=== PATIENT | female | born 1985 | race Caucasian/White ===

== ENCOUNTER → 2017-11-12 19:15 | Outpatient (CLI) | payer OTHER, SELFPAY ==
[2017-11-18 10:08] LABS: HPV APTIMA, High Risk Negative (Negative)
== END ==
PROVIDERS: Visit Provider Nurse Practitioner Women's Health
DX: Z12.4 Encounter for screening for malignant neoplasm of cervix (principal)
CPT/HCPCS: 88175; G0145

== ENCOUNTER → 2017-11-24 08:32 | Outpatient (CLI) | payer OTHER, SELFPAY ==
--- NOTE | 2017-11-24 08:33 | US_ITS ---
STUDY: ULTRASOUND OF THE FEMALE PELVIS - COMPLETE REASON FOR EXAM: Female, 32 years old. IUD placement. LMP: 2016. TECHNIQUE: Transabdominal and Transvaginal TECHNICAL QUALITY: Adequate. COMPARISON: None. FINDINGS: The uterus is anteverted and is in a midline position. The uterus measures 8.0 cm x 4.5 cm x 3.5 cm. Normal uterine cervix. The endometrium measures 2.0 mm in thickness, and is hyperechoic. Trace amount of fluid is seen within the endometrial surrounding the IUD. There is no demonstrated endometrial mass. There is no demonstrated myometrial mass. I.U.D. - The patient does have an I.U.D. The right ovary is visualized. The right ovary measures 2.5 cm x 2.7 cm x 1.8 cm. A dominant follicle is seen. This measures 1.8 cm x 1.6 x 1.1 There is no visualized right adnexal mass or complex lesion. There is normal arterial and normal venous vascularity. The left ovary is visualized. The left ovary measures 3.4 cm x 2.1 cm x 1.8 cm. There is a dominant follicle measuring 1.8 cm x 1.3 cm x 1.1 cm. There is no visualized left adnexal mass or complex lesion. There is normal arterial and normal venous vascularity. There is minimal fluid in the cul-de-sac. The pre void volume of the bladder was 723 ml. Polycystic ovary disease: No. US/Transvaginal Non- IMPRESSION: IUD is seen within the endometrium. Dominant follicle seen in both ovaries. Electronically Signed: Harpreet Ceja MD at 14:25 EDT Tel [phone], Service support ,
--- NOTE | 2017-11-24 08:33 | US_ITS ---
STUDY: ULTRASOUND OF THE FEMALE PELVIS - COMPLETE REASON FOR EXAM: Female, 32 years old. IUD placement. LMP: 2016. TECHNIQUE: Transabdominal and Transvaginal TECHNICAL QUALITY: Adequate. COMPARISON: None. FINDINGS: The uterus is anteverted and is in a midline position. The uterus measures 8.0 cm x 4.5 cm x 3.5 cm. Normal uterine cervix. The endometrium measures 2.0 mm in thickness, and is hyperechoic. Trace amount of fluid is seen within the endometrial surrounding the IUD. There is no demonstrated endometrial mass. There is no demonstrated myometrial mass. I.U.D. - The patient does have an I.U.D. The right ovary is visualized. The right ovary measures 2.5 cm x 2.7 cm x 1.8 cm. A dominant follicle is seen. This measures 1.8 cm x 1.6 x 1.1 There is no visualized right adnexal mass or complex lesion. There is normal arterial and normal venous vascularity. The left ovary is visualized. The left ovary measures 3.4 cm x 2.1 cm x 1.8 cm. There is a dominant follicle measuring 1.8 cm x 1.3 cm x 1.1 cm. There is no visualized left adnexal mass or complex lesion. There is normal arterial and normal venous vascularity. There is minimal fluid in the cul-de-sac. The pre void volume of the bladder was 723 ml. Polycystic ovary disease: No. US/Pelvic (Non ) IMPRESSION: IUD is seen within the endometrium. Dominant follicle seen in both ovaries. Electronically Signed: Harpreet Ceja MD at 14:25 EDT Tel [phone], Service support ,
== END ==
PROVIDERS: Family Provider Family Medicine; PCP Family Medicine; Visit Provider Nurse Practitioner Women's Health
DX: Z30.431 Encounter for routine checking of intrauterine contraceptive device (principal)
CPT/HCPCS: 76830; 76856; 93976

== ENCOUNTER 2018-07-16 12:59 | Day surgery (SDC) | payer OTHER, SELFPAY ==
[2018-06-24 14:32] VITALS: BMI 38.8
[2018-07-13 14:51] VITALS: BMI 38.8
[2018-07-16] VITALS (9 sets, daily range): BP systolic 113–136; BP diastolic 70–80; PULSE 62–92; RESP 16–18; TEMP 36.4–37.6; O2SAT 98–100; BMI 38.4
--- NOTE | 2018-07-16 06:17 | HP.PCM_ITS ---
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 Is patient in pain?: No Allergies Sulfa (Sulfonamide Antibiotics) Allergy (Intermediate, Verified 07/13/18 14:50) Rash Medications fexofenadine 60 mg tablet 60 mg PO BID 06/24/18 [History Confirmed 06/24/18] Is last menstrual period known: No Post menopausal: No Patient : No : No PFSH Surgical History delivery delivered (Acute) Esophageal cyst (Acute) Family History Grandmother Breast cancer Cancer abdominal Aunt Cancer brain Social History Smoking Status: Never smoker alcohol intake: never substance use type: does not use caffeine: No frequency: daily seatbelt use: always do you feel safe at home: Yes additional social history: [email or web address] Patient works for [employer] HPI Pre-op for surgery: Details: DMITRY DE SANTIAGO is a 33 year old who presents for preop visit. she has a retained iud that was unable to be removed and she is wanting sterilized. Female Reproductive History Cycle Length: >35 Questions: Sexually active: Yes, Dyspareunia: No Pregancy History 2 Elective abortions Hx Para 2 Spontaneous abortions Hx # Term Pregnancies Ectopic pregnancies Hx # Pregnancies Multiple births # of living children Past Pregnancies Del. Date Name GA/Weeks Outcome Route Bth Weight Infant Gen Labor Lgth Anesthesia Del Locatn Provider FOB Unknown 2012 Julieth live - full term Unknown 2015 fawn live - full term ROS Const Constitutional: Denies poor appetite, headache(s), fever(s), increased appetite, weight gain, weight loss or fatigue Cardio Card: Denies chest pain Resp Resp: Denies dyspnea or cough GI GI: Reports as per HPI; denies vomiting, nausea, abdominal pain or constipation : Reports as per HPI; denies urinary urgency, vaginal discharge, urinary frequency, vaginal itching, vaginal odor, vaginal dryness, urinary incontinence, urinary hesitancy, difficulty urinating, painful urination or nipple discharge Skin Skin/Breast: Denies breast lump, breast pain, breast skin changes, nipple discharge or change in hair Exam Const General: cooperative, healthy appearing, comfortable, no acute distress, well developed Nutritional Appearance: average body habitus Orientation: alert HENMT Head: normal to inspection, normocephalic Neck Neck: normal visual inspection, trachea midline Thyroid: thyroid normal Resp Effort & Inspection: normal respiratory effort GI Inspection: normal to inspection, non-distended Palpation: soft, no hepatosplenomegaly Skin General: no rashes or lesions noted Assessment & Plan Problems 1. Awaiting removal of contraceptive intrauterine device (IUD) Z30.432 2. Sterilization Z30.2 Plan discussed surgical risks including risks of anesthesia, infection, bleeding, injury to bowel, bladder or blood vessels, and patient wishes to proceed with surgery. UPDATE- I have seen the patient and performed any clinically relevant updates to the history and physical exam. Keara Jama MD
[2018-07-16 13:21] LABS: Internal QC Validated? YES +Cl - CLEAR BKGD; Pregnancy, Urine Negative Negative
[2018-07-16 13:33] LABS: Hematocrit 41.8 % (37-47); Hemoglobin 13.9 g/dl (12.0-15.0); Mean Corp Hgb Conc 33.3 g/gl (32-36); Mean Corpuscular Hgb 28.5 pg (27.0-32.0); Mean Corpuscular Volume 85.8 fL (81-99); Mean Platelet Vol. 10.2 fl (6.2-12.0); Platelet Count 255 K/mm3 (150-450); RBC Distribution Width CV 12.3 % (11.6-14.6); RBC Distribution Width SD 37.7 fl (35.1-43.9); Red Blood Count 4.87 M/mm3 (4.2-5.4); White Blood Count 7.5 K/mm3 (4.4-11.0)
[2018-07-16 13:34] LABS: Absolute Lymphocyte Count 2.42 X10^3/ul (0.83-4.51); Absolute Neutrophil Count 4.5 X10^3/uL (2.0-7.7); Basophil# 0.02 X10^3/uL; Basophil% 0.3 % (0-1); Eosinophil# 0.14 X10^3/uL; Eosinophils% 1.9 % (0-5); Lymphocyte # 2.42 X10^3/ul (4.0); Lymphocyte % 32.3 % (19-41); Monocyte# 0.41 X10^3/uL; Monocyte% 5.5 % (0-10); Neutrophil # 4.49 X10^3/uL (2.7-7.7); Neutrophil % 59.7 % (47-70); POSITIVE COUNT NO; POSITIVE DIFFERENTIAL NO; POSITIVE MORPHOLOGY NO
[2018-07-16 13:36] LABS: Prothrombin Time (Protime)PT. 13.1 SECONDS (11.7-14.9)
[2018-07-16 13:37] LABS: Partial Thromboplast Time 36.8 Seconds (24.1-36.2)
[2018-07-16 13:44] LABS: AST(SGOT) 24 U/L (15-37); Alanine Aminotransfer ALT/SGPT 39 U/L (13-56); Albumin, Serum 3.9 g/dL (3.2-5.0); Alkaline Phosphatase 111 U/L (45-117); Bilirubin, Direct 0.19 mg/dL (0.00-0.30); Globulin 3.9 g/dL (2.2-4.2); Protein, Total 7.8 g/dL (6.4-8.2)
--- NOTE | 2018-07-16 14:40 | FALS_PTH ---
PATIENT: DMITRY DE SANTIAGO [place] [facility] [id number] AGE/SX: 33/F ROOM: RE07/16/[address]: Dr. Keara Jama MD : [id number] BED: DIS: 07/16/2018 SPEC #: [id number] RECD: 07/17/18 10:31 STATUS: DANIELA RETremayne #: [id number] DAVID: 07/16/18 14:[address]: Keara Jama DEPT: SURGICAL PATHOLOGY RECD BY: Lex Pritchett ENTERED: 07/17/18 11:04 SP TYPE: FALL TUBES OTHR DR: Dr. Huan Navarro MD Tissues: Fallopian tube Procedures: Surgery Specimen Level II HEADER OPERATION: Laparoscopic, bilateral tubal occlusion, IUD removal PRE-OP DIAGNOSIS: Awaiting removal of contraceptive intrauterine device; sterilization TISSUE SUBMITTED: Bilateral fallopian tubes MICROSCOPIC DIAGNOSIS Bilateral fallopian tubes, salpingectomy: Bilateral fallopian tubes including fimbrial ends, no pathologic diagnosis. NELLI:anthony 07/20/18 MICROSCOPIC DESCRIPTION Slides are reviewed. GROSS DESCRIPTION Received is one container labeled with the patient's name and designated bilateral fallopian tubes. The specimen consists of two fallopian tubes with an average length of 6 cm and has an average diameter of 0.6 cm. Both fallopian tubes have normal fimbriated ends. No mass lesions are identified. One fallopian tube is inked in black ink. Workforce Development Specialist sections are submitted in one cassette. / AM:anthony 07/17/18 TC:5 CPT: 53826 x2
--- NOTE | 2018-07-16 15:39 | DCINST_ITS ---
Discharge Diet: No Restrictions - Increase fluid intake for the next 48 hours. Discharge Activity: Return to Normal Activity, May Drive - when you are no longer taking narcotic pain medications., May Shower, May Take a Tub Bath - in 7 days Additional Activity Instructions:: Ambulate often the next week after surgery. Nothing in the vagina for 5 days. Call your doctor if your incision/area has: Continuous Slow Oozing, Sudden Increased Bleeding, Increased Pain/ Swelling, Increased Redness, Foul Smelling Discharge Call your doctor if you observe: Fever of 101 or Higher Allergies/Adverse Reactions: Allergies Sulfa (Sulfonamide Antibiotics) Allergy (Intermediate, Verified 07/14/18 09:13) Rash Medications to take at Discharge fexofenadine 60 mg tablet 60 mg PO DAILY 06/24/18 Multivitamin [Multiple Vitamins] 1 each PO DAILY 07/14/18 Naproxen [Naprosyn] 250 - 500 mg PO Q8H PRN PRN #30 tablet 07/16/18 Oxycodone HCl/Acetaminophen [Percocet 5-325] 1 - 2 tablet PO Q4H PRN PRN 7 Days #15 tablet 07/16/18 The following prescriptions were given: Oxycodone HCl/Acetaminophen [Percocet 5-325] 1 - 2 tablet PO Q4H PRN PRN 7 Days #15 tablet PRN Reason: Pain Naproxen [Naprosyn] 250 - 500 mg PO Q8H PRN PRN #30 tablet PRN Reason: MILD PAIN Orders to be completed after discharge: Type & Screen Time Frame: 07/16/18, Location: None Selected Primary Care Physician: Huan Navarro MD [Primary Care Provider] - Test Results: Test results from this visit will be discussed in further detail at your follow- up appointment, if applicable. Please Follow Up With: Keara Jama MD - [phone]
--- NOTE | 2018-07-16 15:39 | PCM.OPRPT ---
Problem List (1) Contraception management Status: Acute Comment: 07/29/16 mirena placed Report of Operation Date of Procedure: 07/16/18 Pre-Operative Diagnosis: sterilization Post-Operative Diagnosis: same Surgery/Procedure Performed:: iud removal and laparoscopic tubal Description of Surgical Findings:: normal pelvis motor analyst: Karolina Armendariz Type of Anesthesia:: General Special Medications: none Specimen's removed: tubes Drains: none Estimated Blood Loss (mL): minimal Fluids Replaced: crystalloid Description of Procedure: Patient was taken in the operating room and was placed under general anesthesia was prepped and draped in normal sterile fashion in the dorsal lithotomy position. Bladder was drained of clear urine and SCDs were on preoperatively. Hemostat was entered into the uterus through the cervix and IUD strings were grasped and removed without complication uterus was sounded and a uterine manipulator was placed after dilating. Attention was then paid to the abdominal portion of the procedure and the umbilicus was elevated with towel clamps and injected with Marcaine and after a 5 mm incision was made and the Veress needle was entered into the abdomen confirmed to be intra-abdominal with a low opening pressure of less than 5 mmHg. Abdomen was insufflated with CO2 gas and a 5 mm optical trocar was placed under direct visualization. A left lower quadrant 5 mm port and a 5 mm port suprapubically replaced under direct visualization. Uterus was well visualized and bilateral fallopian tubes identified and bilateral tubes were elevated and transecting across the mesosalpinx and the attachment to the uterine corpus bilaterally the tubes were removed without complication. Excellent hemostasis was noted. Fallopian tubes were removed through the lower port sites without complication. Liver and upper abdomen were visualized notably within normal limits and no other gross abnormalities were seen in the abdomen. All instruments removed from the abdomen after gas was desufflated. Port sites were closed with 3-0 Monocryl Steri's and op sites were applied. All instruments removed from the vagina and patient was awoken and taken recovery in stable condition. Grafts/Implants Used: none - Complications none
[2018-07-16] MEDS: Bupivacaine 0.25% 30 ML Vial (16:10)
== END 2018-07-16 18:45 | disposition home or self-care (01) ==
LOC: SDC 13:00 → AC 13:02
PROVIDERS: Anesthesiology; Family Provider Family Medicine; PCP Family Medicine; Referring Provider Obstetrics & Gynecology; Visit Provider Obstetrics & Gynecology
PROC: (CPT 58671; principal; 2018-07-16 14:25)
DX: Z30.432 Encounter for removal of intrauterine contraceptive device (principal); Z30.2 Encounter for sterilization; Z88.2 Allergy status to sulfonamides
CPT/HCPCS: 58301; 58661; 80076; 81025; 85025; 85610; 85730; 86850; 86900; 88302; J7120; J2405

== ENCOUNTER → 2020-05-24 09:17 | Outpatient (CLI) | payer OTHER, SELFPAY ==
[2020-05-24 08:37] VITALS: BMI 39.6
[2020-05-24 09:35] LABS: Absolute Lymphocyte Count 1.87 X10^3/uL (0.83-4.51); Absolute Neutrophil Count 3.8 X10^3/uL (2.0-7.7); Basophil# 0.02 X10^3/uL; Basophil% 0.3 % (0-1); Eosinophils% 1.6 % (0-5); Hematocrit 40.7 % (37-47); Hemoglobin 13.4 g/dL (12.0-15.0); Lymphocyte # 1.87 X10^3/ul (4.0); Lymphocyte % 30.7 % (19-41); Mean Corp Hgb Conc 32.9 g/dL (32-36); Mean Corpuscular Hgb 28.7 pg (27.0-32.0); Mean Corpuscular Volume 87.2 fL (81-99); Mean Platelet Vol. 10.1 fl (6.2-12.0); Monocyte# 0.29 X10^3/uL; Monocyte% 4.8 % (0-10); NRBC Flagged by Analyzer 0 % (0-5); Neutrophil % 62.3 % (47-70); Platelet Count 242 K/mm3 (150-450); RBC Distribution Width CV 11.9 % (11.6-14.6); RBC Distribution Width SD 37.7 fl (35.1-43.9); Red Blood Count 4.67 M/mm3 (4.2-5.4); White Blood Count 6.1 K/mm3 (4.4-11.0)
[2020-05-24 10:01] LABS: Vitamin D,25 Hydroxy 22.6 ng/mL
[2020-05-24 10:03] LABS: Cholesterol 178 mg/dL (200); Glucose 88 mg/dL (74-106); High Density Lipoprotein 67 mg/dL; Thyroid Stim Hormone (TSH) 2.25 uIU/mL (0.358-3.74); Triglycerides 65 mg/dL; Very Low Density Lipoprotein 13 mg/dL (5-40)
== END ==
PROVIDERS: PCP Family Medicine; Referring Provider Obstetrics & Gynecology; Visit Provider Obstetrics & Gynecology
DX: Z13.21 Encounter for screening for nutritional disorder (principal); Z01.419 Encounter for gynecological examination (general) (routine) without abnormal findings; Z13.1 Encounter for screening for diabetes mellitus; Z13.220 Encounter for screening for lipoid disorders
CPT/HCPCS: 36415; 80061; 82306; 82947; 84443; 85025

== ENCOUNTER → 2023-08-01 | Outpatient (CLI) | payer OTHER, SELFPAY ==
[2023-08-07 13:07] LABS: HPV APTIMA, High Risk Negative (Negative)
== END | disposition home or self-care (01) ==
LOC: LABSPEC 16:51
PROVIDERS: PCP Family Medicine; Referring Provider Obstetrics & Gynecology; Visit Provider Obstetrics & Gynecology
DX: Z12.4 Encounter for screening for malignant neoplasm of cervix (principal)
CPT/HCPCS: 87624; 88175; G0145

== ENCOUNTER → 2023-08-07 | Outpatient (CLI) | payer OTHER, SELFPAY ==
--- NOTE | 2023-08-07 09:04 | BI_ITS ---
MAMMOGRAPHY - BILATERAL SCREENING 3-D TOMOSYNTHESIS REASON FOR EXAM: Female, 38 years old. Generalized bilateral breast pain. PERTINENT HISTORY: No significant family history. TECHNIQUE: 2-D mammograms and 3-D Tomosynthesis of the breast (s) were performed. CAD was performed. COMPARISON: None. Baseline examination. FINDINGS: The breast composition is composed of scattered fibroglandular density. Normal bilateral axillary lymph nodes.. No dominant masses, suspicious microcalcifications, asymmetries, skin thickening or nipple retraction. No ultrasound performed as the patient''s pain is generalized and not focal. BI/DIAG MAMM W/CAD, BILAT IMPRESSION: No mammographic signs of malignancy. Routine yearly mammograms recommended. ASSESSMENT CATEGORY: BIRADS Category 2: Benign. A letter regarding these results will be sent to the patient by the facility within 30 days. FOLLOW UP RECOMMENDATION: Yearly follow up mammogram recommended. (A) Approximately 10% of breast cancers are not detected by mammography. A normal mammogram should not delay biopsy of a clinically suspicious abnormality. Electronically Signed: Terence Vazquez MD at 9:51 EST ,
--- OUTSIDE RECORDS SUMMARY | 2023-08-07 09:13 | XMS RPT_ITS | CCD ---
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 until otherwise directed. Apply Glucan Cream to healed dorsal hand brown daily. Cover with Cuticerin/Kerlix dressings. Patient voiced understanding of wound care. Pruritis: N/A Pain Medication: Burn scorecard calculated as 2. She was educated on alternating Tylenol and Motrin prn burn pain. Nutrition: Pt educated on increasing daily caloric and protein intake to promote wound healing Tetanus: 2016 Activity/Work: can return to work on Friday02/17/23. Denied requiring a letter for work. PT/OT: not required at this time. Follow up: 1 week in [facility]. Mother desires to come on as she is off work that day. Education: Reviewed signs and symptoms of infection to include fever, redness or swelling extending outside of the burn, or purulent drainage. Sun Precautions: instructed patient to take sun precautions for the next year. Apply sunscreen to healed wound every hour while the pt is outside in the sun. PHQ9: Total Score 0 on 02/08 Surgical Intervention: not required Time spent on encounter (including history, PE, assessment of prior notes/tests and medical management/education was 20 minutes Cellulitis: No Antibiotics: No Grafted: No Date: N/A 10:08 AM 02/14/2023 Ankita Grubbs PA-C documented in this encounter [facility] 02-08-2023 History of Presen t illness Narrative Images from the original note were not included. NEW PATIENT HISTORY AND PHYSICAL OUT PATIENT BURN CENTER DATE OF SERVICE: 02/08/2023 ATTENDING PROVIDER: Devante Pena MD PRIMARY CARE PROVIDER: Allie [facility] MD Mandatory Information: Required on all patients Date of Burn: 02/07/23 Time of Burn: 2029 Previous Treatment: Bactroban and Hydrocodone/APAP Place of Treatment: [facility] Place of Injury: Home Intent of Injury: Accident Mechanism of Burn: Scald Site: Left hand- 0.3% TBSA partial thickness burn; 0% TBSA full thickness burn Total TBSA: 0.3% TBSA with 0% third degree burn Cellulitis: No CHIEF COMPLAINT: Burn HISTORY OF PRESENT ILLNESS: Dmitry is a 37 y.o. female who presents with burn to left hand. The patient is being seen today as an emergency visit. She is accompanied by her spouse. The history is provided by the patient. Dmitry reports that she was making vance yesterday evening in a roasting briones with a rack for the vance and the briones underneath was used to collect for grease. The vance was done and she was pulling the briones out of the oven. She had an Ove glove on the right hand that was removing the briones. She reports that the briones tipped as she was removing it form the oven and some of the grease spilled out on the dorsum of her left hand. She reports that she used a kitchen towel to try to remove grease from her hand. She reports that she had thought she had been told not to apply water to a burn. She went to [facility] in [facility] for treatment. She was seen and evaluated. A dressing with Bactroban was applied to her left hand. She was discharged home with 4 Hydrocodone/APAP 5/325 tabs that had been dispensed during the ER visit. Only script sent to her pharmacy was for the Bactroban. She was instructed to follow up in the OPBC @ 9:00 AM today for evaluation. She reports that she took a tab of the Hydrocodone/APAP last night and one @ 6:30 this AM. She has 2 tabs remaining. She reports that she has not taken any tylenol due tylenol being in the Hydrocodone and she has not had any Ibuprofen. Right handed dominant REVIEW OF SYSTEMS: Review of Systems Constitutional: Negative for activity change, chills and fever. HENT: Negative for sinus pressure and sinus pain. Respiratory: Negative for cough and shortness of breath. Cardiovascular: Negative for chest pain and leg swelling. Gastrointestinal: Negative for abdominal pain, nausea and vomiting. Musculoskeletal: Negative for gait problem. Skin: Positive for wound. Negative for rash. Neurological: Negative for dizziness and light-headedness. Psychiatric/Behavioral: The patient is not nervous/anxious. PAST MEDICAL/SURGICAL HISTORY: Past Medical History: Diagnosis Date Other seasonal allergic rhinitis Vitamin D deficiency Past Surgical History: Procedure Laterality Date SECTION, LOW TRANSVERSE X2 OTHER SURGICAL HISTORY Esophagel cyst excised Anesthesia History MEDICATIONS: Current Outpatient Medications: bacitracin 500 UNIT/GM ointment, Apply to affected area as needed for Wound Care for up to 30 days, Disp: 450 g, Rfl: 0 collagenase (SANTYL) 250 UNIT/GM ointment, Apply to affected area as needed for Wound Care (Dressing Change) for up to 30 days Apply to affected area daily., Disp: 30 g, Rfl: 0 ibuprofen (MOTRIN) 600 MG tablet, Take 1 Tablet (600 mg) by mouth 3 times daily for 10 days, Disp: 30 Tablet, Rfl: 0 oxyCODONE, immediate release, (ROXICODONE) 5 MG tablet, Take 0.5 Tablets (2.5 mg) by mouth every 12 hours as needed for Pain for up to 5 days, Disp: 4 Tablet, Rfl: 0 acetaminophen (TYLENOL) 325 MG tablet, Take 2 Tablets (650 mg) by mouth every 6 hours for 10 days, Disp: 80 Tablet, Rfl: 0 cetirizine (ZYRTEC) 10 MG tablet, Take 1 Tablet (10 mg) by mouth daily, Disp: , Rfl: vitamin D (ERGOCALCIFEROL) 1.25 MG (49866 UT) capsule, Take 1 Capsule (50,000 Units) by mouth every 7 days, Disp: , Rfl: Current Facility-Administered Medications: bacitracin 500 UNIT/GM ointment - packet, , Topical, Once, Liset Leo PA-C ibuprofen (MOTRIN) 200 MG tablet, , , , bacitracin 500 UNIT/GM ointment - jar, , , , DRUG/FOOD ALLERGIES: Allergies Allergen Reactions Penicillins Rash Sulfa Antibiotics Rash SOCIAL/FAMILY HISTORY: Dmitry lives with spouse. Will there be help available to patient for wound care? 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 VITAL SIGNS: Vitals: 02/08/23 0840 BP: (!) 146/77 Patient Position: Sitting Pulse: 104 Resp: 16 Temp: 36.5 C (97.7 F) Weight: (!) 111.9 kg PHYSICAL EXAM: Physical Exam Vitals and nursing note reviewed. Constitutional: Appearance: Normal appearance. HENT: Head: Normocephalic and atraumatic. Eyes: Extraocular Movements: Extraocular movements intact. Conjunctiva/sclera: Conjunctivae normal. Cardiovascular: Rate and Rhythm: Normal rate and regular rhythm. Heart sounds: Normal heart sounds. Pulmonary: Effort: Pulmonary effort is normal. Breath sounds: Normal breath sounds. Abdominal: General: Bowel sounds are normal. Palpations: Abdomen is soft. Musculoskeletal: General: Normal range of motion. Cervical back: Normal range of motion. Comments: Full ROM of fingers on left hand Skin: General: Skin is warm and dry. Capillary Refill: Capillary refill takes less than 2 seconds. Comments: Deep partial thickness dorsum/palm of burn to left hand At the base of the thumb No cellulitis Neurological: General: No focal deficit present. Mental Status: She is alert and oriented to person, place, and time. Psychiatric: Mood and Affect: Mood normal. Behavior: Behavior normal. DIAGNOSIS: Dmitry is a 37 y.o. female with total TBSA: 0.3% TBSA from Scald in distribution documented above. Other important comorbidities or circumstances include: PROCEDURES: Local wound care by nursing and Dressing application by nursing PLAN: Wound Care: Wash gently with a mild soap and water every day. Apply Bacitracin/Santyl to wounds daily until otherwise directed. Pruritis: N/A Pain Medication: Burn scorecard calculated as 2. Has 2 remaining Hydrocodone/APAP from the visit last night in the ER. Discussed starting Tylenol and Motrin with alternating so a dose is given every 3hrs. OARRS reviewed. Narcotic consent was reviewed and signed. Oxycodone 2.5 mg Q 12hrs prn # 4 of the 5 mg tabs. Narcotic disposable bag provided for any remaining narcotic pills. 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 Off until and will see how she is felling. Advised that if she was not taking narcotic pills and felt that she could work with keeping the dressing clean then she could return. If she felt too much pain and did not want to return then it would be okay. Reports that she did not need a note for either case. PT/OT: Will monitor for needs Follow up: 1 week Education: Reviewed signs and symptoms of infection to include fever, redness or swelling extending outside of the burn, or purulent drainage. Sun Precautions: Instructed patient to take sun precautions for the next year. Apply sunscreen to healed wound every hour while the pt is outside in the sun. PHQ-9 Total Score: 0 (02/08/2023 9:20 AM) Cellulitis: No Antibiotics: N\A Grafted: No Date: N/A EDUCATION: Discussed with patient/family depth of burn wounds, expected healing time for burn wounds, signs and symptoms of infection, and side effects/risks of narcotic medications . Understanding voiced. Time spent on the history, physical examination, assessment, plan, and coordination of care for this patient was 40 minutes. Liset Leo PA-C 12:01 PM 02/08/2023 documented in this encounter [facility] 02-08-2023 Hospital Discharg e instructions Liset Leo PA-C - 02/08/2023 9:00 AM EDT Dressing changes Change dressing every day Take a dose of medication 30 mins prior Wash all areas with soap and water Use a wash cloth for burned areas and then a different one for the rest of your body Apply a layer of Santyl to opened areas Work Bacitracin in to the Cuticerin (non stick weaved gauze) and then apply over the burned area Cover as instructed as instructed Activity As the skin heals it will contract and tighten To maintain full range of motion of affected area you need to move and stretch all burned areas daily Swelling Brown to lower extremities can be painful due to swelling May want to use an leanne wrap starting from the toes to the knees for compression to help with swelling Try to keep legs elevated as much as possible Medications Take Tylenol 650 mg every 6hrs Take Ibuprofen 600 mg every 6hrs May alternate so that you receiving a dose every 3 hrs Oxycodone as needed for severe breakthrough pain documented in this encounter [facility] 02-08-2023 Miscellaneous Notes Formattin g of this note might be different from the original. Patient was making vance and when taking vance out of the oven the grease spilled on her.. She went to [facility] and they applied bactroban and a dressing documented in this encounter [facility] 02-08-2023 Nurse Note Patient was making vance and when taking vance out of the oven the grease spilled on her.. She went to [facility] in [place] and they applied bactroban and a dressing [facility] 10-19-2021 History of Presen t illness Narrative Here to get established. 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 She has been having an issues with her left leg/calf.Started a couple of months ago, has pain in the left calf - like a cramp/charley horse, has a lump in the left calf. 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 -[facility] Work Phone: documented [facility] this [facility] Diagnosis Scald burn- Primary Brown involving less than 10% of body surface Burn (any degree) involving less than 10% of body surface with third degree burn of less than 10% or unspecified amount Partial thickness burn of back of left hand, subsequent encounter Partial thickness burn of palm of left hand, initial encounter documented [facility] Diagnosis Partial thickness burn of back of left hand, subsequent encounter- Primary Partial thickness burn of palm of left hand, subsequent encounter [facility] Present illness NarrativeHere for f/u recent testing. Her Doppler was negative for DVT, she states that the lump that she had before is gone. She has had some cramping off and on still. Her vitamin D level was a little low -she states that she has vitamin D at home and can start taking that.[facility] Work Phone: History of Present illness NarrativeHere for f/u recent testing. Her Doppler was negative for DVT, she states that the lump that she had before is gone. She has had some cramping off and on still. Her vitamin D level was a little low -she states that she has vitamin D at home and can start taking that. Otherwise she is doing well.[facility] 205 DO Work Phone: Summary Purpose Family History No Family History Records FoundUnknown Family Member Name Dates Details Family history of malignant neoplasm of breast: Grandmother(V16.3, Z80.3) Status:Active Cancer of abdomen: Grandmoth er Status:Active Family history of hypertensi on: Grandfather(V17.49, Z82.49) Status:Active Family history of malignant neoplasm of brain: Aunt(V16.8, Z80.8) Status:Active Unknown Family Member Name Dates Details Family history of malignant neoplasm of breast: Grandmother(V16.3, Z80.3) Status:Active Cancer of abdomen: Grandmoth er Status:Active Family history of hypertensi on: Grandfather(V17.49, Z82.49) Status:Active Family history of malignant neoplasm of brain: Aunt(V16.8, Z80.8) Status:Active Unknown Family Member Name Dates Details Family history of malignant neoplasm of breast: Grandmother(V16.3, Z80.3) Status:Active Cancer of abdomen: Grandmoth er Status:Active Family history of hypertensi on: Grandfather(V17.49, Z82.49) Status:Active Family history of malignant neoplasm of brain: Aunt(V16.8, Z80.8) Status:Active Unknown Family Member Name Dates Details Family history of malignant neoplasm of breast: Grandmother(V16.3, Z80.3) Status:Active Cancer of abdomen: Grandmoth er Status:Active Family history of hypertensi on: Grandfather(V17.49, Z82.49) Status:Active Family history of malignant neoplasm of brain: Aunt(V16.8, Z80.8) Status:Active Unknown Family Member Name Dates Details Family history of malignant neoplasm of breast: Grandmother(V16.3, Z80.3) Status:Active Cancer of abdomen: Grandmoth er Status:Active Family history of hypertensi on: Grandfather(V17.49, Z82.49) Status:Active Family history of malignant neoplasm of brain: Aunt(V16.8, Z80.8) Status:Active Advance Directives No Advanced Directives Records FoundNo Advanced Directives Records FoundNo Advanced Directives Records FoundNo Advanced Directives Records FoundNo Advanced Directives Records FoundNo Advanced Directives Records FoundNo Advanced Directives Records Found Reason for Referral Status Reason Specialty Diagnoses / Procedures Referred By Contact Referred To Contact New Request Family Medicine Diagnoses Acute non-recurrent sinusitis, unspecified location Iveth Baxter PA [address] [place] [address] Instructions * Patient Instructions* Iveth Baxter PA - 09/14/2019 12:35 PM EST Sinusitis: Care Instructions Your Care Instructions Sinusitis is an infection of the lining of the sinus cavities in your head. Sinusitis often followsa cold. It causes pain and pressure in your head and face. In most cases, sinusitis gets better on its own in 1 to 2 weeks. But some mild symptoms may last for several weeks. Sometimes antibiotics are needed. Follow-up care is a [place] part of your treatment and safety. Be sure to make and go to all appointments, and call your doctor if you are having problems. It's also a good idea to know your test resultsand keep a list of the medicines you take. How can you care for yourself at home? Take an yxwv-hyl-yyyignl pain medicine, such as acetaminophen (Tylenol), ibuprofen (Advil, Motrin),or naproxen (Aleve). Read and follow all instructions on the label. If the doctor prescribed antibiotics, take them as directed. Do not stop taking them just because you feel better. You need to take the full course of antibiotics. Be careful when taking ysoc-abk-edyadpz cold or flu medicines and Tylenol at the same time. Many ofthese medicines have acetaminophen, which is Tylenol. Read the labels to make sure that you are nottaking more than the recommended dose. Too much acetaminophen (Tylenol) can be harmful. Breathe warm, moist air from a steamy shower, a hot bath, or a sink filled with hot water. Avoid cold, dry air. Using a humidifier in your home may help. Follow the directions for cleaning the machine. Use saline (saltwater) nasal washes to help keep your nasal passages open and wash out mucus and bacteria. You can buy saline nose drops at a grocery store or drugstore. Or you can make your own at home by adding 1 teaspoon of salt and 1 teaspoon of baking soda to 2 cups of distilled water. If you make your own, fill a bulb syringe with the solution, insert the tip into your nostril, and squeeze gently. Blow your nose. Put a hot, wet towel or a warm gel pack on your face 3 or 4 times a day for 5 to 10 minutes each time. Try a decongestant nasal spray like oxymetazoline (Afrin). Do not use it for more than 3 days in a row. Using it for more than 3 days can make your congestion worse. When should you call for help? Call your doctor now or seek immediate medical care if: You have new or worse swelling or redness in your face or around your eyes. You have a new or higher fever. Watch closely for changes in your health, and be sure to contact your doctor if: You have new or worse facial pain. The mucus from your nose becomes thicker (like pus) or has new blood in it. You are not getting better as expected. Where can you learn more? Go to http://www.[employer].osu.edu/patiented. Enter I933 in the search box to learn more about 'Sinusitis: Care Instructions.' Interested in seeing a video go to https://[employer].edu/videolibrary to see all video content. Current as of: March 07, 2019 Content Version: 12.3 [employer]. Care instructions adapted under license by your healthcare professional. If you have questions about a medical condition or this instruction, always ask your healthcare professional. [employer] disclaims any warranty or liability for your use of this information. documented in this encounter History of Present Illness * Iveth Baxter PA - 09/14/2019 12:35 PM EST URGENT CARE eNCOUnter CHIEF COMPLAINT Sinus Infection (Pt reports pain/pressure and congestion x 2-3 days. States it almost makes my teeth hurt also states she is leaving for vacation in a few days and would like to try to get it cleared up) PILAR Dmitry Shultz is a 34 y.o. female who presents today for for complaint of 2-3 days of sinus pressure and pain. Patient reports pain into her teeth. Patient states she is leaving for vacation in 2 days and wants to feel better. She denies any fever or chills. Denies any cough, shortness of breath,or chest pain. She has tried idbw-kyx-izvtecq allergy medication without relief. REVIEW OF SYSTEMS Review of Systems Constitutional: Negative for chills, fatigue and fever. HENT: Positive for sinus pressure, sinus pain and sore throat. Negative for congestion and trouble swallowing. Eyes: Negative for visual disturbance. Respiratory: Negative for cough, chest tightness and shortness of breath. Cardiovascular: Negative for chest pain. Gastrointestinal: Negative for abdominal pain, nausea and vomiting. Musculoskeletal: Negative for back pain and neck pain. Skin: Negative for rash. Neurological: Negative for dizziness and weakness. All other systems reviewed and are negative. PAST MEDICAL HISTORY No past medical history on file. SURGICAL HISTORY Past Surgical History: Procedure Laterality Date SECTION CURRENT MEDICATIONS Current Outpatient Medications Medication Sig Dispense Refill doxycycline hyclate 100 MG Cap capsule Take 1 capsule by mouth 2 times daily for 10 days. 20 capsule 0 elyoyhgbmhjbsyg-gzgqqqxzqpaealkc-tvayJPKrkib [id number] MG Tab tablet Take 1 tablet by mouth every 6hours as needed. (Patient not taking: Reported on 09/14/2019) 30 tablet 0 No current facility-administered medications for this visit. ALLERGIES Allergies Allergen Reactions Penicillins Rash Sulfa Antibiotics FAMILY HISTORY History reviewed. No pertinent family history. SOCIAL HISTORY Social History Socioeconomic History Marital status: Spouse name: Not on file Number of children: Not on file Years of education: Not on file Highest education level: Not on file Occupational History Not on file Social Needs Financial resource strain: Not on file Food insecurity: Worry: Not on file Inability: Not on file Transportation needs: Medical: Not on file Non-medical: Not on file Tobacco Use Smoking status: Never Smoker Smokeless tobacco: Never Used Substance and Sexual Activity Alcohol use: Yes Comment: social Drug use: No Sexual activity: Not on file Lifestyle Physical activity: Days per week: Not on file Minutes per session: Not on file Stress: Not on file Relationships Social connections: Talks on phone: Not on file Gets together: Not on file Attends anabaptism service: Not on file Active member of club or organization: Not on file Attends meetings of clubs or organizations: Not on file Relationship status: Not on file Intimate partner violence: Fear of current or ex partner: Not on file Emotionally abused: Not on file Physically abused: Not on file Forced sexual activity: Not on file Other Topics Concern Service Not Asked Blood Transfusions Not Asked Caffeine Concern Not Asked Occupational Exposure Not Asked Hobby Hazards Not Asked Sleep Concern Not Asked Stress Concern Not Asked Weight Concern Not Asked Special Diet Not Asked Back Care Not Asked Exercise Not Asked Bike Helmet Not Asked Seat Belt Not Asked Domestic Violence No Social History Narrative Not on file PHYSICAL EXAM Blood pressure 137/84, pulse 94, temperature 98.8 F (37.1 C), temperature source Temporal, resp. rate 20, height 1.626 m (5' 4 ), weight 106.6 kg (235 lb), SpO2 99 %, not currently . Physical Exam General exam: Patient is well-developed and well-nourished in no distress. Patient does not appear acutely ill or toxic. Eye exam: Lids and conjunctivae are normal ENT exam: head and facial exam is normal. The neck is supple without meningeal signs. No significant adenopathy. + maxillary sinus tenderness. Rhinorrhea. Pulmonary exam: No respiratory distress. Respiratory rate is normal. No stridor. Breath sounds are equal bilaterally. There are no wheezes, rales, or rhonchi noted. Cardiac exam: The cardiac rate and rhythm are normal. No significant murmurs, rubs, or gallops. Peripheral pulses are normal. Abdominal exam: Abdomen is soft and nondistended. No pulsatile masses. There is no local tenderness. No rebound or guarding noted. Skin and soft tissue: Skin is warm and dry, without significant abnormality. Good color. Musculoskeletal exam: no peripheral edema. Neurologic: Patient is alert and appropriate. Normal speech. Normal symmetric strength and tone in all extremities. Psychiatric: Normal adult with appropriate demeanor and interpersonal interaction. Is oriented to person, place, and time. Diagnosis, Assessment & Plan: Dmitry was seen today for sinus infection. Diagnoses and all orders for this visit: Acute non-recurrent sinusitis, unspecified location - AMB REFERRAL TO FAMILY PRACTICE Other orders - doxycycline hyclate 100 MG Cap capsule; Take 1 capsule by mouth 2 times daily for 10 days. 34-year-old female presents today With a few days of sinus congestion. Discussed with patient this is likely a viral etiology due to the duration of her symptoms. This patient is going on vacation I will prescribe doxycycline but advised to try supportive treatment first with using Flonase and a decongestant. Advised to return if any new or worsening symptoms. CHARITY Beltre 09/14/2019 documented in this encounter Assessments Diagnosis Acute non-recurrent sinusitis, unspecified location- Primary Chief Complaint NPV to establish care, routine check up, pain/knot in left calf off and on x 2 monthsf/u visitf/u visit Additional Source Comments INFORMATION SOURCE (unrecogn ized section and content) DATE CREATED AUTHOR AUTHOR'S ORGANIZ ATION 02/04/2018 [facility] DATE CREATED AUTHOR AUTHOR'S ORGANIZ ATION 12/21/2021 [facility] DATE CREATED AUTHOR AUTHOR'S ORGANIZ ATION 01/10/2022 [facility] DATE CREATED AUTHOR AUTHOR'S ORGANIZ ATION 01/12/2022 [employer] DATE CREATED AUTHOR AUTHOR'S ORGANIZ ATION 02/13/2023 [facility] DATE CREATED AUTHOR AUTHOR'S ORGANIZ ATION 02/21/[address] 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 This clinical summary was aggregated from multiple sources. Caution should be exercised in using it in the provision of clinical care. This summary normalizes information from multiple sources, and as a consequence, information in this document may materially change the coding, format and clinical context of patient data. In addition, data may be omitted in some cases. CLINICAL DECISIONS SHOULD BE BASED ON THE PRIMARY CLINICAL RECORDS. [facility] provides no warranty or guarantee of the accuracy or completeness of information in this document.
== END | disposition home or self-care (01) ==
LOC: OPBI 09:00
PROVIDERS: PCP Family Medicine; Referring Provider Obstetrics & Gynecology; Visit Provider Obstetrics & Gynecology
DX: N64.4 Mastodynia (principal)
CPT/HCPCS: 77062; 77066; G0279

== ENCOUNTER → 2024-08-20 | Outpatient (CLI) | payer OTHER, SELFPAY ==
--- NOTE | 2024-08-20 12:39 | BI_ITS ---
MAMMOGRAPHY - BILATERAL SCREENING REASON FOR EXAM: Female, 39 years old. Routine annual screening examination. PERTINENT HISTORY: Grandmother with breast cancer. TECHNIQUE: Digital bilateral breast aislinn (3D mammographic acquisition) in the CC and MLO projections. 2-D mediolateral oblique (MLO) and craniocaudad (CC) views of both breasts were obtained. CAD: Full Field Digital Mammography with Computer Added Detection was performed. COMPARISON: Comparison is made with prior study dated August 07, 2023. FINDINGS: Breast Composition: There are scattered areas of fibroglandular density. There are no dominant masses or suspicious calcifications. No other significant abnormalities are identified. There has been no significant change since the prior study. BI/SCRN MAMM (CAD)W/AISLINN BILAT IMPRESSION: Stable bilateral screening mammogram. Yearly follow-up mammogram recommended. (A) ASSESSMENT CATEGORY: BIRADS Category 1: Negative. A letter regarding these results will be sent to the patient by the facility within 30 days. Approximately 10% of breast cancers are not detected by mammography. A normal mammogram should not delay biopsy of a clinically suspicious abnormality. [id number] Electronically Signed: Harpreet Ceja MD at 13:17 EST ,
== END | disposition home or self-care (01) ==
LOC: OPBI 12:39
PROVIDERS: PCP Family Medicine; Referring Provider Obstetrics & Gynecology; Visit Provider Obstetrics & Gynecology
DX: Z12.31 Encounter for screening mammogram for malignant neoplasm of breast (principal); Z80.3 Family history of malignant neoplasm of breast
CPT/HCPCS: 77063; 77067